=== PATIENT | male | born 1965 | race Caucasian/White ===

== ENCOUNTER 2022-01-01 13:58 | Observation (INO) | payer BC ==
[2022-01-01] MEDS ORDERED: Sodium Chloride 0.9% 10 ML Syringe FLUSH PRN ×2 (14:04→19:59)
[2022-01-01] MEDS ORDERED: Sodium Chloride 0.9% 1,000 ML IV ONE (14:21)
[2022-01-01] MEDS ORDERED: Aspirin 81 MG Tab.Chew PO ONE (14:26)
[2022-01-01] MEDS ORDERED: Heparin Sodium 5,000 Units/ML Vial IVPUSH ONE (19:24)
[2022-01-01] MEDS ORDERED: Heparin Sodium/0.45% NaCl 500 ML IV SCH (19:30)
[2022-01-01] MEDS ORDERED: Ondansetron 4 MG Tab.DIS PO PRN (19:59)
[2022-01-02] MEDS ORDERED: Pantoprazole 40 MG Tab.CR PO SCH (07:00)
== END 2022-01-02 10:37 | disposition home or self-care (01) ==
LOC: CC.ED 13:58 → UNDOADMOB 19:00 → CC.MS 19:00 → CC.ED 19:00 → CC.MS 19:59 → UNDODISOB 01-02 10:37
PROVIDERS: ADMIT Nurse Practitioner Family; ATTEND Nurse Practitioner Family
DX: R77.8 Other specified abnormalities of plasma proteins (principal); I47.1 Supraventricular tachycardia; Z79.899 Other long term (current) drug therapy
CPT/HCPCS: 36415; 71046; 80048; 80053; 82150; 83690; 84484; 85025; 85610; 85730; 93005; 93010; 96361; 96365; 96366; 96374; 96376; 99217; 99220; 99285-25; A9270-GY; G0378; J1644; J7030